=== PATIENT | female | born 1970 | race African-American/Black ===

== ENCOUNTER 2017-04-12 15:16 | Inpatient (IN) | payer MEDICAID ==
[~2017-04-12] VITALS: Ht 157.5 cm; Wt 72.6 kg
[2017-04-12] MEDS ORDERED: lisinopril (15:36)
[2017-04-12 21:11] LABS: BASOPHILS % 0.7 % (0.0-2.0); EOSINOPHILS % 2.1 % (0.0-5.0); HEMATOCRIT. 39.3 % (36.0-48.0); HEMOGLOBIN. 13.1 g/dL (12.0-16.0); LYMPHOCYTES % 28.9 % (20.0-50.0); MEAN CORPUSCULAR HEMOGLOBIN 27.5 pg (28.0-32.0); MEAN CORPUSCULAR VOLUME 82.5 fL (81.0-99.0); MEAN PLATELET VOLUME 8.1 fl (7.4-10.4); MONOCYTES % 6.3 % (2.0-8.0); PLATELET 310 x1000/uL (130-400); RED BLOOD CELL COUNT 4.76 mill/uL (4.2-5.4); RED CELL DISTRIBUTION WIDTH 14.5 % (11.6-14.6)
[2017-04-12 21:17] LABS: CHLORIDE 106 mEq/L (98-107)
[2017-04-12 21:26] LABS: CARBON DIOXIDE 27 mEq/L (21-32)
[2017-04-12] MEDS ORDERED: ACETAMINOPHEN 325MG TABLET PO PRN (22:30)
[2017-04-12] MEDS ORDERED: MAGNESIUM/ALUMINUM HYDROXIDE/SIMETHICONE 30ML UDC PO PRN (22:30)
[2017-04-12] MEDS ORDERED: DOCUSATE SODIUM 100MG CAPSULE PO PRN (22:30)
[2017-04-12] MEDS ORDERED: CLONIDINE 0.1MG TABLET PO PRN (22:30)
[2017-04-12] MEDS ORDERED: IPRATROPIUM/ALBUTEROL 0.5-3(2.5)MG/3ML NEB INH PRN (22:30)
[2017-04-12] MEDS ORDERED: PIPERACILLIN/TAZOBACTAM 3.375GM/50ML PREMIX IV ONE (22:30)
[2017-04-12] MEDS ORDERED: PIPERACILLIN/TAZ 3.375G PREMIX 50 ML IV NR (22:45)
[2017-04-12 22:58] LABS: CHLORIDE 105 mEq/L (98-107)
[2017-04-12 23:04] LABS: CARBON DIOXIDE 26 mEq/L (21-32)
[2017-04-12] MEDS: HYDROCODONE/ACETAMINOPHEN 5/325MG TABLET PO PRN (23:12)
[2017-04-13] VITALS (7 sets, daily range): BP systolic 101–126; BP diastolic 56–81
[2017-04-13] MEDS ORDERED: AMLO10TA80 PO (01:51)
[2017-04-13] MEDS ORDERED: LISI10TA5 PO (01:53)
[2017-04-13 06:12] LABS: BASOPHILS % 0.4 % (0.0-2.0); HEMATOCRIT. 36.6 % (36.0-48.0); HEMOGLOBIN. 12.1 g/dL (12.0-16.0); LYMPHOCYTES % 31.9 % (20.0-50.0); MEAN CORPUSCULAR HEMOGLOBIN 27.4 pg (28.0-32.0); MEAN CORPUSCULAR VOLUME 82.8 fL (81.0-99.0); MEAN PLATELET VOLUME 8.1 fl (7.4-10.4); MONOCYTES % 7.4 % (2.0-8.0); NEUTROPHILS % 58.3 % (40.0-76.0); PLATELET 287 x1000/uL (130-400); RED BLOOD CELL COUNT 4.42 mill/uL (4.2-5.4); RED CELL DISTRIBUTION WIDTH 14.3 % (11.6-14.6)
[2017-04-13] MEDS ORDERED: PIPERACILLIN/TAZ 3.375G PREMIX 50 ML IV SCH (07:00)
[2017-04-13] MEDS: ENOXAPARIN 40MG/0.4ML SYR SUBCUT SCH (08:32)
[2017-04-13] MEDS: AMLODIPINE 10MG TABLET PO SCH (08:35)
[2017-04-13] MEDS: LISINOPRIL 10MG TABLET PO SCH (08:35)
[2017-04-13] MEDS: HYDROCODONE/ACETAMINOPHEN 5/325MG TABLET PO PRN ×2 (08:57→21:42)
[2017-04-13] MEDS: ERYTHROMYCIN BASE 0.5% OPHTH OINT 3.5GM LEFTEYE SCH ×2 (15:40→21:32)
[2017-04-13] MEDS: PIPERACILLIN/TAZ 3.375G PREMIX 50 ML IV SCH ×2 (15:40→19:48)
[2017-04-13] MEDS ORDERED: TETRACAINE 0.5% OPHTH DROPS 4ML BOTHEYE NR (20:45)
[2017-04-13] MEDS: ATORVASTATIN CALCIUM 20MG TABLET PO SCH (20:48)
[2017-04-13] MEDS: CIPROFLOXACIN 0.3% OPHTH SOLN 2.5ML BOTHEYE SCH (21:00)
[2017-04-13] MEDS: DEXAMETHASONE 4MG/ML 1ML VIAL IV SCH (23:30)
[2017-04-13] MEDS: PREDNISOLONE ACETATE 1% OPHTH DROPS 1ML BOTHEYE SCH (23:48)
[2017-04-14] VITALS: BP 123/70
[2017-04-14] MEDS: PIPERACILLIN/TAZ 3.375G PREMIX 50 ML IV SCH ×4 (02:10→23:11)
[2017-04-14 04:00] VITALS: BP 114/71
[2017-04-14] MEDS: ERYTHROMYCIN BASE 0.5% OPHTH OINT 3.5GM LEFTEYE SCH ×3 (05:17→23:39)
[2017-04-14] MEDS: DEXAMETHASONE 4MG/ML 1ML VIAL IV SCH ×3 (05:17→20:26)
[2017-04-14] MEDS: PREDNISOLONE ACETATE 1% OPHTH DROPS 1ML BOTHEYE SCH ×4 (05:17→23:25)
[2017-04-14 08:00] VITALS: BP 121/76
[2017-04-14] MEDS: LISINOPRIL 10MG TABLET PO SCH (09:02)
[2017-04-14] MEDS: ENOXAPARIN 40MG/0.4ML SYR SUBCUT SCH (09:02)
[2017-04-14] MEDS: AMLODIPINE 10MG TABLET PO SCH (09:02)
[2017-04-14] MEDS: CIPROFLOXACIN 0.3% OPHTH SOLN 2.5ML BOTHEYE SCH ×4 (09:03→23:10)
[2017-04-14 12:00] VITALS: BP 116/75
[2017-04-14] MEDS ORDERED: VANCOMYCIN 1500MG in DEXTROSE 5% WATER 250ML IV SCH (15:00)
[2017-04-14 16:31] VITALS: BP 116/98
[2017-04-14 20:00] VITALS: BP 113/72
[2017-04-14] MEDS: HYDROCODONE/ACETAMINOPHEN 5/325MG TABLET PO PRN (23:12)
[2017-04-14] MEDS: ATORVASTATIN CALCIUM 20MG TABLET PO SCH (23:12)
[2017-04-15] VITALS: BP 106/66
[2017-04-15] MEDS: DEXAMETHASONE 4MG/ML 1ML VIAL IV SCH ×3 (00:34→12:16)
[2017-04-15] MEDS: PIPERACILLIN/TAZ 3.375G PREMIX 50 ML IV SCH ×3 (02:10→15:03)
[2017-04-15] MEDS: VANCOMYCIN 1 G PREMIX 200 ML IV SCH ×2 (03:38→15:00)
[2017-04-15 04:00] VITALS: BP 96/46
[2017-04-15 05:32] LABS: HEMATOCRIT. 38.9 % (36.0-48.0); HEMOGLOBIN. 12.8 g/dL (12.0-16.0); MEAN CORPUSCULAR HEMOGLOBIN 27.2 pg (28.0-32.0); MEAN CORPUSCULAR VOLUME 82.7 fL (81.0-99.0); PLATELET 347 x1000/uL (130-400); RED CELL DISTRIBUTION WIDTH 14.3 % (11.6-14.6)
[2017-04-15] MEDS: PREDNISOLONE ACETATE 1% OPHTH DROPS 1ML BOTHEYE SCH ×2 (05:37→12:16)
[2017-04-15] MEDS: ERYTHROMYCIN BASE 0.5% OPHTH OINT 3.5GM LEFTEYE SCH ×2 (05:41→14:00)
[2017-04-15 08:00] VITALS: BP 127/80
[2017-04-15] MEDS: CIPROFLOXACIN 0.3% OPHTH SOLN 2.5ML BOTHEYE SCH ×2 (08:32→12:15)
[2017-04-15] MEDS: LISINOPRIL 10MG TABLET PO SCH (08:32)
[2017-04-15] MEDS: AMLODIPINE 10MG TABLET PO SCH (08:32)
[2017-04-15] MEDS: ENOXAPARIN 40MG/0.4ML SYR SUBCUT SCH (08:33)
[2017-04-15 10:37] LABS: CARBON DIOXIDE 27 mEq/L (21-32); CHLORIDE 102 mEq/L (98-107)
[2017-04-15] MEDS ORDERED: HYDR-523 PO (13:57)
[2017-04-15 14:11] VITALS: BP 127/80
[2017-04-15 17:45] LABS: PLATELET ESTIMATE NORMAL
== END 2017-04-15 16:00 | disposition home or self-care (01) | DRG 383 ==
LOC: ER 15:50 → EDBEDREQSVC 22:20 → EDBEDREQTM 22:20 → EDBEDREQ 22:20 → 8WST 04-13 00:02 → ENRESERV 04-13 00:02 → 8WST 04-13 01:37
PROVIDERS: ADMIT Internal Medicine; ATTEND Internal Medicine
DX: L03.213 Periorbital cellulitis (principal); I10 Essential (primary) hypertension; E11.9 Type 2 diabetes mellitus without complications; J32.0 Chronic maxillary sinusitis; E78.5 Hyperlipidemia, unspecified; H53.2 Diplopia; H10.30 Unspecified acute conjunctivitis, unspecified eye; K04.6 Periapical abscess with sinus; H00.014 Hordeolum externum left upper eyelid; Z79.899 Other long term (current) drug therapy
CPT/HCPCS: 36415; 70486; 80048; 80053; 80061; 83605; 85025; 87040; 96360; 99285; J1100; J1650; J2543; J3370; J7050; J7060

== ENCOUNTER 2018-06-03 13:45 | Emergency (ER) | payer MEDICAID, OTHER ==
[~2018-06-03] VITALS: Ht 157.5 cm; Wt 81.0 kg
[~2018-06-03 13:45] MED LIST: AMLO10TA80 PO; DIPH25CA83 PO; LISI10TA5 PO; LORA10TA7 PO; OMEP20TA15 PO
[2018-06-03 13:54] VITALS: BP 126/82
== END 2018-06-03 18:44 | disposition home or self-care (01) ==
LOC: ER 13:45
DX: L03.115 Cellulitis of right lower limb (principal); F17.200 Nicotine dependence, unspecified, uncomplicated; I10 Essential (primary) hypertension
CPT/HCPCS: 99283

== ENCOUNTER 2018-07-02 10:24 | Emergency (ER) | payer OTHER ==
[~2018-07-02] VITALS: Ht 157.5 cm; Wt 81.0 kg
[2018-07-02 10:30] VITALS: BP 125/71
[2018-07-02] MEDS ORDERED: ACETAMINOPHEN 325MG TABLET PO ONE (13:15)
== END 2018-07-02 13:40 | disposition home or self-care (01) ==
LOC: ER 11:08
DX: H10.31 Unspecified acute conjunctivitis, right eye (principal); F17.200 Nicotine dependence, unspecified, uncomplicated; I10 Essential (primary) hypertension; Z98.890 Other specified postprocedural states
CPT/HCPCS: 99283; C1893

== ENCOUNTER 2018-08-19 08:22 | Emergency (ER) | payer OTHER ==
[~2018-08-19] VITALS: Ht 157.5 cm; Wt 81.0 kg
[2018-08-19 12:52] VITALS: BP 114/73
== END 2018-08-19 12:52 | disposition home or self-care (01) ==
LOC: ER 09:08
DX: H00.034 Abscess of left upper eyelid (principal); I10 Essential (primary) hypertension; F17.200 Nicotine dependence, unspecified, uncomplicated
CPT/HCPCS: 99283